=== PATIENT | female | born 1995 | race American Indian/Alaskan Native ===

== ENCOUNTER 2018-08-23 23:59 | Emergency (ER) | payer OTHER ==
[2018-08-24 00:52] VITALS: TEMP 98.3
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
[2018-08-24 01:20] VITALS: BP 113/74; PULSE 79; RESP 20
[2018-08-24 02:13] VITALS: O2SAT 96
--- NOTE | 2018-08-24 09:57 | RAD ---
Date of service: 08/24/2018 PROCEDURE: Left Ankle Radiographs. HISTORY: trauma COMPARISON: The FINDINGS: BONES: Normal. No fracture. JOINTS: Normal. No osteoarthritis. Ankle mortise maintained. Talar dome intact SOFT TISSUES: Normal. OTHER FINDINGS: None. IMPRESSION: No evidence of acute displaced fracture nor dislocation..
== END 2018-08-24 01:46 | disposition home or self-care (01) ==
LOC: C.ER 23:59
DX: S90.02XA Contusion of left ankle, initial encounter (principal); V03.90XA Pedestrian on foot injured in collision with car, pick-up truck or van, unspecified whether traffic or nontraffic accident, initial encounter